=== PATIENT | male | born 1985 | race Caucasian/White ===

== ENCOUNTER 2021-02-25 08:00 | Outpatient (CLI) | payer OTHER ==
--- NOTE | 2021-02-25 08:56 | XRAY Report ---
PROCEDURE: Chest 2 View X-Ray INDICATIONS: CHEST PX TECHNIQUE: 2 view(s) of the chest. COMPARISON: None. FINDINGS: Surgical changes and devices: None. Lungs and pleura: No pleural effusions or pneumothorax. Lungs are clear. Mediastinum: Mediastinal contours are normal. Heart size is normal. Bones and chest wall: No suspicious bony abnormalities. Soft tissues appear unremarkable. IMPRESSION: No acute cardiopulmonary pathology. Reviewed by: Donnie Monaco MD on 02/25/2021 8:54 AM [facility] Approved by: Donnie Monaco MD on 02/25/2021 8:54 AM [facility] Station ID: [id number]
== END 2021-02-25 23:59 ==
LOC: DI.N 08:00
PROVIDERS: ATTEND Family Medicine
DX: R07.9 Chest pain, unspecified (principal)

== ENCOUNTER 2021-02-25 08:47 | Emergency (ER) | payer OTHER ==
[2021-02-25] MEDS ORDERED: KETOROLAC 30 MG/ML VIAL IVP STA (09:16)
[2021-02-25] MEDS ORDERED: DEXAMETHASONE 10 MG/ML VIAL IVP STA (09:16)
[2021-02-25 09:19] VITALS: BP 114/80
--- NOTE | 2021-02-25 09:21 | XRAY Report ---
PROCEDURE: Chest 1 View X-Ray INDICATIONS: chest pain TECHNIQUE: One view of the chest was acquired. COMPARISON: Chest radiographs 02/25/2021 at approximately 8:00 AM. Chest radiographs 12/29/2011 FINDINGS: Surgical changes and devices: None. Lungs and pleura: No pleural effusions or pneumothorax. Lungs are clear. Mediastinum: Mediastinal contours appear normal. Heart size is normal. Bones and chest wall: No suspicious bony lesions. Overlying soft tissues appear unremarkable. Mild posterior convex curvature of the thoracic spine. IMPRESSION: No acute cardiopulmonary abnormality. No significant interval change when compared to the exam from natalie sanchez the same day. Reviewed by: David Trinidad MD on 02/25/2021 9:20 AM [facility] Approved by: David Trinidad MD on 02/25/2021 9:20 AM [facility] Station ID: [id number]
[2021-02-25 09:28] LABS: BASOPHILS % (AUTO) 0.5 %; EOSINOPHILS # (AUTO) 0.1 10^3/uL (0.0-0.7); EOSINOPHILS % (AUTO) 1.4 %; HCT - HEMATOCRIT 45.6 % (42.0-52.0); HGB - HEMOGLOBIN 14.5 g/dL (14.0-18.0); LYMPHOCYTES % (AUTO) 22.4 %; MEAN CORPUSCULAR HEMOGLOBIN 27.1 pg (27.0-31.0); MEAN CORPUSCULAR HGB CONC 31.8 g/dL (32.0-36.0); MEAN CORPUSCULAR VOLUME 85.2 fL (80.0-94.0); MEAN PLATELET VOLUME 9.8 fL (7.4-11.4); MONOCYTES # (AUTO) 0.7 10^3/uL (0.0-1.0); MONOCYTES % (AUTO) 15.7 %; NEUTROPHILS # (AUTO) 2.6 10^3/uL (1.5-6.6); NEUTROPHILS % (AUTO) 59.8 %; PLT - PLATELET COUNT 237 10^3/uL (130-450); RED BLOOD COUNT 5.35 10^6/uL (4.70-6.10); RED CELL DISTRIBUTION WIDTH 12.6 % (12.0-15.0); WHITE BLOOD COUNT 4.3 x10^3/uL (4.8-10.8)
[2021-02-25 09:42] LABS: ALBUMIN 4.1 g/dL (3.2-5.5); ALBUMIN/GLOBULIN RATIO 1.2 (1.0-2.2); BILIRUBIN,TOTAL 0.7 mg/dL (0.2-1.0); CALCIUM 8.9 mg/dL (8.5-10.3); CREATININE 0.9 mg/dL (0.6-1.2); POTASSIUM 4.5 mmol/L (3.5-5.0); TOTAL PROTEIN 7.5 g/dL (6.7-8.2)
--- NOTE | 2021-02-25 09:56 | ED Physician Documentation ---
PD HPI CHEST PAIN - Stated complaint Stated Complaint: CHEST PX - Chief complaint Chief Complaint: Cardiac - History obtained from History obtained from: Patient - History of Present Illness Timing - onset: Enter time (0600), Today Timing - onset during: Sleep Timing - duration: Hours Timing - details: Abrupt onset, Now resolved Quality: Pressure, Sharp Location: Substernal, Left chest Radiation: Jaw, Neck, Back, Left upper extremity, Right upper extremity, Other (both LE and a sensation of blood coming from the gums.) Improved by: Other (seemed to get better on the way to urgent car) Associated symptoms: Shortness of air, Diaphoresis. No: Nausea, Vomiting, Feeling faint / dizzy, General Weakness, Palpitations, Cough Similar symptoms before: Has not had sx before Recently seen: Other (had covid right befor [facility], [place]. Has felt well this past week.) - Additional information Additional information: 35-year-old male with a history of ADHD awoke this morning at 6 AM with a crushing substernal chest pain that radiated into his neck down both of his arms both of his legs and into his teeth. He rated the pain as very uncomfortable not the worst pain he is ever had. When he arrived at the urgent care this morning he rated his pain as a 6 or 7. The pain has subsequently resolved. At 1 point he was having some trouble feeling like he needed to cough and the cough causing pain. He did not have chest wall tenderness. He was seen at the urgent care and sent to the emergency department for further evaluation including D- dimer and Trope. Electrocardiogram showed some ST elevations. I do not have this tracing. Review of Systems Constitutional: denies: Fever Eyes: denies: Decreased vision Ears: denies: Ear pain Nose: denies: Congestion Throat: denies: Sore throat Cardiac: reports: Chest pain / pressure. denies: Palpitations, Pedal edema, Calf pain Respiratory: denies: Dyspnea, Cough, Wheezing GI: denies: Abdominal Pain, Nausea, Vomiting, Constipation, Diarrhea : denies: Dysuria, Frequency Skin: denies: Rash, Lesions Musculoskeletal: denies: Neck pain, Back pain, Extremity pain Neurologic: denies: Generalized weakness, Focal weakness, Numbness PD PAST MEDICAL HISTORY - Past Medical History Past Medical History: No - Past Surgical History Past Surgical History: Yes General: Appendectomy - Present Medications Home Medications: Ambulatory Orders Medication Instructions Recorded Confirmed Dextroamphetamine/Amphetamine 10 mg PO DAILY 02/25/21 02/25/21 [Adderall 10 mg Tablet] - Allergies Allergies/Adverse Reactions: Allergies Allergy/AdvReac Type Severity Reaction Status Date / Time No Known Drug Allergies Allergy Verified 02/25/21 08:53 - Social History Does the pt smoke?: No Smoking Status: Never smoker PD ED PE NORMAL - Vitals Vital signs reviewed: Yes (tachy ) - General General: Alert and oriented X 3, No acute distress, Well developed/nourished - HEENT HEENT: Atraumatic, PERRL, EOMI - Neck Neck: Supple, no meningeal sign, No bony TTP - Cardiac Cardiac: RRR, No murmur - Respiratory Respiratory: No respiratory distress, Clear bilaterally, Other (no chest wall tenderness) - Abdomen Abdomen: Soft, Non tender - Back Back: No CVA TTP, No spinal TTP Results - Vitals Vitals: Vital Signs - 24 hr 02/25/21 02/25/21 08:51 09:18 Temperature 36.4 C L Heart Rate 101 H 82 Respiratory 16 30 H Rate Blood Pressure 127/77 114/80 O2 Saturation 99 100 Oxygen O2 Source Room air - EKG (time done) 0849 Rate: Rate (enter#) (87) Rhythm: NSR Ischemia: ST elevation c/w ischemia (inferior subtle less than 1mV) Compare to prior EKG: Old EKG unavailable Computer interpretation: Disagree with computer (I do not see lateral q waves) - Labs Labs: Laboratory Tests 02/25/21 02/25/21 02/25/21 09:08 09:08 09:08 WBC 4.3 L RBC 5.35 Hgb 14.5 Hct 45.6 MCV 85.2 MCH 27.1 MCHC 31.8 L RDW 12.6 Plt Count 237 MPV 9.8 Neut # (Auto) 2.6 Lymph # (Auto) 1.0 L [place] # (Auto) 0.7 Eos # (Auto) 0.1 Baso # (Auto) 0.0 Absolute Nucleated RBC 0.00 Nucleated RBC % 0.0 D-Dimer 273.6 H Sodium 136 Potassium 4.5 Chloride 102 Carbon Dioxide 26 Anion Gap 8.0 BUN 12 Creatinine 0.9 Estimated GFR (MDRD) 96 Glucose 98 Calcium 8.9 Total Bilirubin 0.7 AST 42 ALT 33 Alkaline Phosphatase 78 Troponin I High Sens Total Protein 7.5 Albumin 4.1 Globulin 3.4 Albumin/Globulin Ratio 1.2 Lipase 31 02/25/21 09:08 WBC RBC Hgb Hct MCV MCH MCHC RDW Plt Count MPV Neut # (Auto) Lymph # (Auto) [place] # (Auto) Eos # (Auto) Baso # (Auto) Absolute Nucleated RBC Nucleated RBC % D-Dimer Sodium Potassium Chloride Carbon Dioxide Anion Gap BUN Creatinine Estimated GFR (MDRD) Glucose Calcium Total Bilirubin AST ALT Alkaline Phosphatase Troponin I High Sens 1597.9 H* Total Protein Albumin Globulin Albumin/Globulin Ratio Lipase - Rads (name of study) chest Radiology: Prelim report reviewed (Impression: No acute cardiopulmonary abnormality. No significant interval change when compared to the exam from earlier the same day.), EMP read indepedently, See rad report Procedures - Bedside sono Bedside sono by EMP: With use bedside ultrasound the heart is imaged there is no obvious pericardial effusion PD MEDICAL DECISION MAKING - ED course Complexity details: reviewed results, re-evaluated patient, considered differential, d/w patient ED course: 35-year-old male presents with some crushing substernal chest pain pressure that awoke him from sleep lasted a little bit more than 2 hours and is now resolved. He did have some pleuritic component to the pain and was administered IV decadron and toradal with resolution. I did examine his heart with the bedside ultrasound and I do not see obvious pericardial effusion. His electrocardiogram here reads ST elevation in the inferior leads and this is present and less than 1mV. I did not initially appreciate this and I was not able to see the reported Q waves in the lateral leads. The patient's trop came back elevated at over 1500. I contacted the ED at [facility] and they will accept in transfer at [facility]. Departure - Departure Disposition: 02 Transfer Acute Care Hosp Clinical Impression: STEMI (ST elevation myocardial infarction) Qualifiers: Involved coronary artery: unspecified coronary artery Qualified Code(s): I21.3 - ST elevation (STEMI) myocardial infarction of unspecified site Condition: Stable
[2021-02-25] MEDS ORDERED: iohexoL-300 100 ML VIAL ONE (10:01)
[2021-02-25] MEDS ORDERED: iohexoL-300 100 ML VIAL IVP ONE (10:23)
--- NOTE | 2021-02-25 10:27 | CT Report ---
PROCEDURE: ANGIO CHEST W/WO INDICATIONS: chest pain elevated d-dimer and trop CONTRAST: IV CONTRAST: Optiray 320 ml: 80 PO CONTRAST: *NO PO CONTRAST TECHNIQUE: After the administration of intravenous contrast, 2 mm axial images were acquired from the pulmonary apices to the posterior costophrenic angles during the arterial phase. In addition, 1 mm lung kernel and 5 mm soft tissue kernel reconstructions were performed. 3-dimensional coronal oblique maximum int ensity projection (MIP) reformats, 8 mm axial MIP, and 5 mm coronal and sagittal MPR reformats were t hen performed through the thorax. For radiation dose reduction, the following was used: automated exp osure control, adjustment of mA and/or kV according to patient size. COMPARISON: Correlation is made with chest radiograph performed earlier in the day. FINDINGS: Image quality: Excellent. Pulmonary arteries: Pulmonary arteries are normal in size, and demonstrate no intraluminal filling d efects to suggest central pulmonary embolism. Lungs and pleura: Lungs are clear. No pleural effusions or pneumothorax. Central and peripheral ai rways are patent. Mediastinum: Heart size is normal, without pericardial effusion. No mediastinal or hilar adenopathy . Thoracic aorta is normal in caliber and enhancement. Esophagus is normal in caliber, without hiat al hernia. Bones and chest wall: No suspicious bony lesions. Ribs and thoracic spine appear intact throughout. No axillary or supraclavicular adenopathy. The thyroid is normal in size and there are no incident al findings. Abdomen: Visualized upper abdominal solid organs appear normal in the early arterial phase of enhanc ement. IMPRESSION: Negative for pulmonary embolism. Clear lungs. Reviewed by: Eliseo Mcdowell MD on 02/25/2021 9:25 AM [facility] Approved by: Eliseo Mcdowell MD on 02/25/2021 9:25 AM [facility] Station ID: [id number]
[2021-02-25] MEDS ORDERED: CLOPIDOGREL 300 MG TABLET PO STA (10:35)
[2021-02-25] MEDS ORDERED: HEPARIN 25000UNITS/500ML (D5W) 25,000 UNIT/500 ML BAG IV SCH (11:00)
[2021-02-25 11:37] LABS: CORONAVIRUS 229E-RESP PCR NOT DETECTED; CORONAVIRUS HKU1-RESP PCR NOT DETECTED; CORONAVIRUS NL63-RESP PCR NOT DETECTED; CORONAVIRUS OC43-RESP PCR NOT DETECTED; HUMAN METAPNEUMOVIRUS NOT DETECTED; RHINOVIRUS/ENTEROVIRUS NOT DETECTED; SARS-CoV-2 -RESP PCR PANEL NOT DETECTED
[2021-02-25 11:38] LABS: B. PARAPERTUSSIS- RESP PCR PAN NOT DETECTED; B. PERTUSSIS- RESP PCR PANEL NOT DETECTED; C. PNEUMONIAE- RESP PCR PANEL NOT DETECTED; INFLUENZA A- RESP PCR PANEL NOT DETECTED; INFLUENZA B - RESP PCR PANEL NOT DETECTED; M. PNEUMONIAE- RESP PCR PANEL NOT DETECTED; PARAINFLUENZA VIRUS 1 NOT DETECTED; PARAINFLUENZA VIRUS 2 NOT DETECTED; PARAINFLUENZA VIRUS 3 NOT DETECTED; PARAINFLUENZA VIRUS 4 NOT DETECTED; RSV- RESP PCR PANEL NOT DETECTED
== END 2021-02-25 10:51 | disposition short-term general hospital (02) ==
LOC: ED 08:47
DX: I21.3 ST elevation (STEMI) myocardial infarction of unspecified site (principal); Z20.822 Contact with and (suspected) exposure to COVID-19; R07.9 Chest pain, unspecified
CPT/HCPCS: 0202U; 36415; 71045; 71046; 71275; 80053; 83690; 84484; 85025; 85379; 93005; 96374; 96375; 99285; Q9967